=== PATIENT | male | born 1955 | race Caucasian/White ===

== ENCOUNTER → 2017-03-07 | Outpatient (REF) | payer OTHER ==
[2017-03-07 14:21] LABS: HEMATOCRIT 43.3 % (42.0-52.0); HEMOGLOBIN 14.7 g/dl (14.0-18.0); MEAN CORPUSCULAR HEMOGLOBIN 29.9 pg (27.0-33.0); MEAN CORPUSCULAR HGB CONC 33.9 g/dl (32.0-36.5); PLATELET COUNT, AUTOMATED 203 10^3/uL (150-450); RED BLOOD COUNT 4.92 10^6/uL (4.30-6.10); RED CELL DISTRIBUTION WIDTH 12.6 % (11.5-14.5); WHITE BLOOD COUNT 6.5 10^3/uL (4.0-10.0)
[2017-03-07 14:47] LABS: ALBUMIN 4.2 GM/DL (3.2-5.2); ALBUMIN/GLOBULIN RATIO 1.35 (1.00-1.93); ALKALINE PHOSPHATASE 58 U/L (45-117); ALT/SGPT 42 U/L (12-78); ANION GAP 5 MEQ/L (8-16); AST/SGOT 36 U/L (7-37); BILIRUBIN,TOTAL 0.4 MG/DL (0.2-1.0); BLOOD UREA NITROGEN 22 MG/DL (7-18); CALCIUM LEVEL 9.4 MG/DL (8.8-10.2); CARBON DIOXIDE LEVEL 31 MEQ/L (21-32); CHLORIDE LEVEL 105 MEQ/L (98-107); CHOLESTEROL LEVEL 243 MG/DL (<200); CREATININE FOR GFR 1.01 MG/DL (0.70-1.30); GLOMERULAR FILTRATION RATE > 60.0 (>49); GLUCOSE, FASTING 93 MG/DL (80-110); HDL CHOLESTEROL 91 MG/DL (>40); LDL CHOLESTEROL 137.6 MG/DL (<100); NON-HDL-C 152 MG/DL; POTASSIUM SERUM 4.7 MEQ/L (3.5-5.1); SODIUM LEVEL 141 MEQ/L (136-145); TOTAL PROTEIN 7.3 GM/DL (6.4-8.2); TRIGLYCERIDES LEVEL 72 MG/DL (<150)
== END ==
LOC: M LABDRAW1 11:10
DX: E03.9 Hypothyroidism, unspecified (principal); E78.00 Pure hypercholesterolemia, unspecified; Z86.718 Personal history of other venous thrombosis and embolism

== ENCOUNTER → 2018-08-25 | Outpatient (CLI) | payer OTHER ==
[~2018-08-25] MED LIST: CEFD300C41 FT; IBUP-1022 PO; SYNT150T PO; TYLE500T78 PO; XARE15TA PO
--- NOTE | 2018-08-25 19:16 | ECGEPIP ---
[facility] Test Date: 2018-08-25 Pat Name: ALEX MONTAGUE Department: Room: - Gender: Male Legal Internship: MONICA : 1955 Requested By: Deya Martell PA-C Order Number: [id number] Reading MD: Wyatt Hutchins Measurements Intervals [place] Rate: 38 P: 60 ND: 220 QRS: 42 QRSD: 129 T: 53 QT: 493 QTc: 395 Interpretive Statements SINUS BRADYCARDIA WITH FIRST DEGREE AV BLOCK MODERATE INTRAVENTRICULAR CONDUCTION DELAY/RIGHT BUNDLE-BRANCH BLOCK PATTERN No prior tracing in the system THIS WAS DISCUSSED EARLIER TODAY WITH THE STAFF. PATIENT IS ASYMPTOMATIC AND HE IS NOT ON ANY AV BLOCKING AGENTS. PATIENT WAS TOLD TO CONTACT HIS PRIMARY Electronically Signed on 08-25-2018 19:16:36 EDT by Wyatt Hutchins
== END ==
LOC: M EKG 09:23
PROVIDERS: ATTEND Physician Assistant Surgical
DX: Z01.810 Encounter for preprocedural cardiovascular examination (principal); M23.41 Loose body in knee, right knee

== ENCOUNTER → 2019-04-29 | Outpatient (REF) | payer MEDICARE, OTHER ==
[2019-04-29 12:10] LABS: HEMATOCRIT 44.2 % (42.0-52.0); HEMOGLOBIN 14.6 g/dl (13.5-17.5); MEAN CORPUSCULAR HEMOGLOBIN 29.3 pg (27.0-33.0); MEAN CORPUSCULAR VOLUME 88.6 fl (80.0-96.0); PLATELET COUNT, AUTOMATED 198 10^3/uL (150-450); RED BLOOD COUNT 4.99 10^6/uL (4.30-6.10); WHITE BLOOD COUNT 6.2 10^3/uL (4.0-10.0)
[2019-04-29 12:17] LABS: ALT/SGPT 18 U/L (12-78); BILIRUBIN,TOTAL 0.6 MG/DL (0.2-1.0); BLOOD UREA NITROGEN 25 MG/DL (7-18); CARBON DIOXIDE LEVEL 25 MEQ/L (21-32); CHLORIDE LEVEL 105 MEQ/L (98-107); CHOLESTEROL LEVEL 231 MG/DL (<200); CHOLESTEROL RISK RATIO 3.347 (<5); CREATININE FOR GFR 1.13 MG/DL (0.70-1.30); GLOMERULAR FILTRATION RATE > 60.0 (>49); GLUCOSE, FASTING 102 MG/DL (70-100); HDL CHOLESTEROL 69 MG/DL (>40); LDL CHOLESTEROL 150 MG/DL (<100); NON-HDL-C 162 MG/DL; POTASSIUM SERUM 4.6 MEQ/L (3.5-5.1); SODIUM LEVEL 138 MEQ/L (136-145); TOTAL PROTEIN 7.7 GM/DL (6.4-8.2); TRIGLYCERIDES LEVEL 62 MG/DL (<150)
[2019-04-29 12:35] LABS: HEMOGLOBIN A1c 5.8 %
== END ==
LOC: M SFHCPLAZ 09:00
PROVIDERS: ATTEND Internal Medicine
DX: Z00.00 Encounter for general adult medical examination without abnormal findings (principal); Z86.718 Personal history of other venous thrombosis and embolism; Z87.2 Personal history of diseases of the skin and subcutaneous tissue; E78.00 Pure hypercholesterolemia, unspecified; E03.9 Hypothyroidism, unspecified; Z79.899 Other long term (current) drug therapy
CPT/HCPCS: 36415; 80053; 80061; 83036; 84443; 85027; 90732; 93005; G0009; G0402; G0463

== ENCOUNTER → 2019-05-12 | Outpatient (CLI) | payer MEDICARE, OTHER | LOC: M SLEEP HO 05-11 13:29 | PROVIDERS: ATTEND Internal Medicine Cardiovascular Disease | DX: R06.83 Snoring (principal) ==

== ENCOUNTER → 2019-06-20 | Outpatient (CLI) | payer MEDICARE, OTHER ==
--- NOTE | 2019-06-22 20:36 | SLEEPCENT ---
DATE OF PROCEDURE: 06/20/2019 ORDERED BY: Dr. Wilder Taveras Nocturnal polysomnography was performed for evaluation of sleep physiology in this patient with a history of atrial arrhythmias. 7 hours and 46 minutes of data were reviewed. There were 305 minutes of sleep identified. Sleep latency was prolonged at 28.5 minutes. Rapid eye movement (REM) latency was prolonged at 183.5 minutes. Sleep architecture was fair with two REM cycles. There was a period of wake during sleep, resulting in reduced sleep efficiency of 66.5%. Electrocardiogram showed a sinus rhythm with some rate variability surrounding respiratory events. Average heart rate 44 beats per minute. Rate ranged 30-60. There was no occurrence of ectopy surrounding obstructive respiratory events. EEG showed normal waveforms for awake and sleep stages. There were no focal events identified. There were 29 respiratory events identified of 10 seconds in duration or greater for an apnea-hypopnea index of 5.7. The events were hypopneic primarily, not exclusive to sleep stage nor body posture, perhaps more significant in the supine position. Arousals from respiratory events occurred 6.5 times per hour and oxygen desaturations were seen into the upper 80s. There was minimal activity in the limb leads. Snoring was noted over the course of the study. IMPRESSION: Mild obstructive sleep apnea syndrome (G47.33). Apnea-hypopnea index 5.7. RECOMMENDATIONS: Sleep position retraining for avoidance of the supine posture may be sufficient. However, consideration for referral back to sleep disorder center for pressure therapy should also be considered.
== END ==
LOC: M SLEEP 20:00
PROVIDERS: ATTEND Internal Medicine Pulmonary Disease
DX: G47.33 Obstructive sleep apnea (adult) (pediatric) (principal)

== ENCOUNTER → 2019-07-28 | Outpatient (CLI) | payer MEDICARE, OTHER ==
--- NOTE | 2019-08-06 11:46 | SLEEPCENT ---
DATE OF PROCEDURE: 07/28/2019 INTERPRETATION: Nocturnal polysomnography was performed for the titration of pressure therapy in this patient with obstructive sleep apnea syndrome. Apnea-hypopnea index of 5.7. For testing a ResMed AirFit F30 medium-size mask was used, 4 cm of water pressure were applied to the circuit and the lights were extinguished. 7 hours and 25 minutes data were reviewed. There were 328 minutes of sleep identified. Sleep latency was mildly prolonged at 17.5 minutes. REM latency was normal at 80 minutes. Sleep architecture was good with three REM cycles noted. Overall sleep efficiency was 74.6%. The electrocardiogram showed sinus rhythm with an average heart rate of 42 beats per minute. Rate ranged 36-50. EEG showed fairly normal wave forms for awake and sleep. There were no focal event appreciated. Persistence of respiratory events prompted an increase in CPAP to an optimal pressure +9 with which the patient slept through REM without respiratory events or oxygen desaturation. There is no significant activity in the limb leads and remaining measures of sleep physiology was normal. IMPRESSION: Her obstructive sleep apnea syndrome (G47.33) RECOMMENDATIONS: Night use of pressure therapy at 9 cm of water.
== END ==
LOC: M SLEEP 20:00
PROVIDERS: ATTEND Internal Medicine Pulmonary Disease
DX: G47.33 Obstructive sleep apnea (adult) (pediatric) (principal)

== ENCOUNTER 2019-08-11 18:59 | Emergency (ER) | payer MEDICARE, OTHER ==
[~2019-08-11] VITALS: Ht 182.9 cm; Wt 104.2 kg
--- NOTE | 2019-08-11 19:27 | REPVR ---
PROCEDURE INFORMATION: Exam: CT Head Without Contrast Exam date and time: 08/11/2019 7:15 PM Age: 64 years old Clinical indication: Visual disturbance; Additional info: Neuro symptoms, visual changes TECHNIQUE: Imaging protocol: Computed tomography of the head without contrast. Radiation optimization: All CT scans at this facility use at least one of these dose optimization techniques: automated exposure control; mA and/or kV adjustment per patient size (includes targeted exams where dose is matched to clinical indication); or iterative reconstruction. COMPARISON: No relevant prior studies available. FINDINGS: Brain: Normal. No hemorrhage. Unremarkable white matter. No mass effect. Ventricles: Normal. No ventriculomegaly. Bones/joints: Unremarkable. No acute fracture. Sinuses: Visualized sinuses are unremarkable. No fluid levels. Mastoid air cells: Visualized mastoid air cells are well aerated. Vasculature: Atherosclerotic changes in the intracranial carotid arteries. Soft tissues: Unremarkable. IMPRESSION: No acute intracranial abnormalities. Electronically signed by: Rosalio Golden On 08/11/2019 19:27:34 PM
[2019-08-11 19:42] LABS: BASO # 0.1 10^3/uL (0.0-0.2); BASO % 0.8 % (0.0-1.0); EOS # 0.1 10^3/uL (0.0-0.5); EOS % 1.6 % (0.0-3.0); HEMATOCRIT 40.9 % (42.0-52.0); HEMOGLOBIN 13.7 g/dl (13.5-17.5); LYMPH % 31.8 % (24.0-44.0); MEAN CORPUSCULAR HEMOGLOBIN 29.2 pg (27.0-33.0); MEAN CORPUSCULAR HGB CONC 33.5 g/dl (32.0-36.5); MEAN CORPUSCULAR VOLUME 87.2 fl (80.0-96.0); MONO # 0.6 10^3/uL (0.0-0.8); MONO % 8.9 % (0.0-5.0); NEUTROPHILS # 3.5 10^3/uL (1.5-8.5); NEUTROPHILS % 56.7 % (36.0-66.0); PLATELET COUNT, AUTOMATED 167 10^3/uL (150-450); RED BLOOD COUNT 4.69 10^6/uL (4.30-6.10); WHITE BLOOD COUNT 6.2 10^3/uL (4.0-10.0)
--- NOTE | 2019-08-11 20:00 | REP ---
Single view chest: 08/11/2019. Indication: Stroke. Comparison: 05/07/2019. Findings: The lungs are clear. There is no pleural effusion or pneumothorax. Heart size is normal. Impression: No acute cardiopulmonary process. Electronically Signed by Kanu Whiteside DO 08/11/2019 07:51 P
[2019-08-11 20:11] LABS: BLOOD UREA NITROGEN 12 MG/DL (7-18); CALCIUM LEVEL 8.8 MG/DL (8.8-10.2); CARBON DIOXIDE LEVEL 27 MEQ/L (21-32); CHLORIDE LEVEL 106 MEQ/L (98-107); CK-MB VALUE MASS 4.9 NG/ML (<3.6); CPK CREATINE PHOSPHOKINASE 307 U/L (39-308); CREATININE FOR GFR 1.13 MG/DL (0.70-1.30); GLOMERULAR FILTRATION RATE > 60.0 (>49); GLUCOSE, FASTING 83 MG/DL (70-100); POTASSIUM SERUM 4.1 MEQ/L (3.5-5.1); SODIUM LEVEL 142 MEQ/L (136-145); TROPONIN I < 0.02 NG/ML (< 0.10)
--- NOTE | 2019-08-11 20:22 | ECGEPIP ---
[facility] - ED Test Date: 2019-08-11 Pat Name: ALEX MONTAGUE Department: Room: - Gender: Male [employer]ator: jaison : 1955 Requested By: NOELLE Morgan Order Number: [id number] Reading MD: Desirae Corbett Measurements Intervals [place] Rate: 44 P: 51 IA: 196 QRS: 40 QRSD: 130 T: 23 QT: 492 QTc: 425 Interpretive Statements SINUS BRADYCARDIA IVCD SIMILAR 08/25/18 Electronically Signed on 08-11-2019 20:21:59 EDT by Desirae Corbett
[2019-08-11 20:27] LABS: INR 1.2; PROTHROMBIN TIME 14.9 SECONDS (11.8-14.0)
[2019-08-11 20:28] LABS: PARTIAL THROMBOPLASTIN TIME 30.3 SECONDS (25.0-38.4)
[2019-08-11 21:15] VITALS: BP 131/76
== END 2019-08-11 21:46 | disposition home or self-care (01) ==
LOC: M ED 18:59
DX: H53.9 Unspecified visual disturbance (principal); E03.9 Hypothyroidism, unspecified; Z79.890 Hormone replacement therapy; Z79.01 Long term (current) use of anticoagulants

== ENCOUNTER → 2020-01-26 | Outpatient (CLI) | payer SELFPAY | LOC: M LABSMTC 11:51 | PROVIDERS: ATTEND Pediatrics | DX: Z11.59 Encounter for screening for other viral diseases (principal) ==

== ENCOUNTER → 2020-04-22 | Outpatient (CLI) | payer SELFPAY | LOC: M LABSMTC 10:58 | PROVIDERS: ATTEND Pediatrics | DX: Z20.822 Contact with and (suspected) exposure to COVID-19 (principal) ==

== ENCOUNTER 2020-11-26 13:39 | Emergency (ER) | payer MEDICARE, OTHER ==
[~2020-11-26] VITALS: Ht 182.9 cm; Wt 110.4 kg
--- NOTE | 2020-11-26 14:55 | REP ---
INDICATION: R/O DVT. COMPARISON: None. TECHNIQUE: 2D and pulse duplex Doppler ultrasound evaluation of the lower extremity deep venous system was performed. FINDINGS: Examination of the deep venous system of the left lower extremity reveals no evidence of deep venous thrombosis. 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 The calf veins were not well demonstrated. IMPRESSION: No evidence of deep venous thrombosis of the left lower extremity. <Electronically signed by Yordan Bryson > 11/26/20 [id number]
[2020-11-26 15:18] LABS: BASO # 0.1 10^3/uL (0.0-0.2); BASO % 0.3 % (0.0-1.0); EOS % 0.1 % (0.0-3.0); HEMATOCRIT 41.9 % (42.0-52.0); HEMOGLOBIN 14.4 g/dl (13.5-17.5); LYMPH # 0.6 10^3/uL (1.5-5.0); LYMPH % 3.9 % (24.0-44.0); MEAN CORPUSCULAR HEMOGLOBIN 29.8 pg (27.0-33.0); MEAN CORPUSCULAR HGB CONC 34.4 g/dl (32.0-36.5); MEAN CORPUSCULAR VOLUME 86.6 fl (80.0-96.0); MONO # 0.8 10^3/uL (0.0-0.8); MONO % 4.8 % (2.0-8.0); NEUTROPHILS # 14.9 10^3/uL (1.5-8.5); NEUTROPHILS % 89.8 % (36.0-66.0); PLATELET COUNT, AUTOMATED 179 10^3/uL (150-450); RED BLOOD COUNT 4.84 10^6/uL (4.30-6.10); WHITE BLOOD COUNT 16.6 10^3/uL (4.0-10.0)
[2020-11-26] MEDS ORDERED: ACETAMINOPHEN TAB 650MG DOSE (2X325MG) PO ONE (16:55)
[2020-11-26] MEDS ORDERED: cefTRIAXone SOD 1 GM in D5W MINI-BAG PLUS 50 ML IV ONE (17:10)
--- NOTE | 2020-11-26 17:25 | REP ---
INDICATION: fever. COMPARISON: Portable chest, 08/11/2019. TECHNIQUE: Upright AP portable chest image was obtained. FINDINGS: The lungs are clear. There is no lobar consolidation or pleural effusion. There is cardiomegaly without congestive heart failure. The upper abdominal bowel gas pattern is normal. There are no bony abnormalities of the chest. IMPRESSION: Cardiomegaly. No evidence of acute cardiopulmonary pathology. No significant change. <Electronically signed by Yordan Bryson > 11/26/20 [id number]
[2020-11-26] MEDS ORDERED: LIDOCAINE 1% SDV 5ML VIAL DILUENT ONE (18:00)
[2020-11-26] MEDS ORDERED: cefTRIAXone SOD 1GM VIAL (J0696 PER 250MG) IM ONE (18:00)
[2020-11-26 18:25] VITALS: BP 126/56
[2020-11-26 18:37] LABS: RSV AMPLIFICATION NEGATIVE (NEGATIVE)
[2020-11-26] MEDS ORDERED: CEPH500C PO (18:48)
== END 2020-11-26 19:05 | disposition home or self-care (01) ==
LOC: M ED 13:39
DX: R50.9 Fever, unspecified (principal); R42 Dizziness and giddiness; M79.652 Pain in left thigh; E07.9 Disorder of thyroid, unspecified; Z79.890 Hormone replacement therapy; Z79.899 Other long term (current) drug therapy; Z98.890 Other specified postprocedural states
CPT/HCPCS: 71045; 81001; 83605; 85025; 87040; 87631; 93971; 96372; 99283; J0696

== ENCOUNTER 2020-11-27 15:13 | Outpatient (CLI) | payer MEDICARE, OTHER ==
[~2020-11-27 15:13] MED LIST changes: +CEPH500C PO
[2020-11-27] MEDS ORDERED: cefTRIAXone SOD 2 GM in D5W MINI-BAG PLUS 50 ML IV ONE (16:00)
[2020-11-28] MEDS ORDERED: XARE10TA PO (18:38)
== END 2020-11-27 16:20 | disposition home or self-care (01) ==
LOC: M OPCLI5PR 15:13
PROVIDERS: ATTEND Family Medicine
DX: L03.116 Cellulitis of left lower limb (principal)
CPT/HCPCS: 96365; J0696

== ENCOUNTER 2020-11-28 15:04 | Emergency (ER) | payer MEDICARE, OTHER ==
[~2020-11-28] VITALS: Ht 182.9 cm; Wt 110.0 kg
[2020-11-28] MEDS ORDERED: XARE10TA PO (18:38)
[2020-11-28] MEDS ORDERED: cefTRIAXone SOD 2 GM in D5W MINI-BAG PLUS 50 ML IV ONE (18:45)
[2020-11-28 19:06] LABS: BASO % 0.7 % (0.0-1.0); EOS # 0.1 10^3/uL (0.0-0.5); EOS % 2.2 % (0.0-3.0); HEMATOCRIT 43.3 % (42.0-52.0); HEMOGLOBIN 14.4 g/dl (13.5-17.5); LYMPH # 1.6 10^3/uL (1.5-5.0); LYMPH % 28.3 % (24.0-44.0); MEAN CORPUSCULAR HEMOGLOBIN 29.8 pg (27.0-33.0); MEAN CORPUSCULAR HGB CONC 33.3 g/dl (32.0-36.5); MEAN CORPUSCULAR VOLUME 89.6 fl (80.0-96.0); MONO # 0.9 10^3/uL (0.0-0.8); MONO % 15.5 % (2.0-8.0); NEUTROPHILS # 3.1 10^3/uL (1.5-8.5); PLATELET COUNT, AUTOMATED 172 10^3/uL (150-450); RED BLOOD COUNT 4.83 10^6/uL (4.30-6.10); WHITE BLOOD COUNT 5.8 10^3/uL (4.0-10.0)
[2020-11-28 19:27] LABS: BLOOD UREA NITROGEN 14 MG/DL (7-18); CALCIUM LEVEL 8.9 MG/DL (8.8-10.2); CARBON DIOXIDE LEVEL 30 MEQ/L (21-32); CHLORIDE LEVEL 106 MEQ/L (98-107); CREATININE FOR GFR 1.09 MG/DL (0.70-1.30); GLOMERULAR FILTRATION RATE > 60.0 (>49); GLUCOSE, FASTING 106 MG/DL (70-100); POTASSIUM SERUM 4.4 MEQ/L (3.5-5.1); SODIUM LEVEL 138 MEQ/L (136-145)
[2020-11-28 19:52] LABS: ERYTHROCYTE SEDIMENTATION RATE 15 mm/hr (0-20)
--- NOTE | 2020-11-28 19:56 | REP ---
INDICATION: LLE swelling; worsening; hx of DVT. COMPARISON: Comparison study 26 November 2020. TECHNIQUE: Left {lower extremity duplex venous scanning is performed from the groin to the ankle level. FINDINGS: The deep veins are anechoic and fully compressible from the groin to the popliteal fossa in the left lower extremity. Color flow imaging is homogeneous. Spectral Doppler interrogation demonstrates intact respiratory variation in flow and normal manual augmentation of flow. There is no evidence of deep vein thrombosis above the knee. The calf veins could not be well visualized due to edema. No evidence of calf vein thrombosis seen. Doppler interrogation of the contralateral common femoral vein shows normal symmetric respiratory phasicity. IMPRESSION: No evidence of DVT in the left lower extremity femoropopliteal veins. No DVT in the visible portions of the calf veins. <Electronically signed by Chidi Mast > 11/28/201952
[2020-11-28 20:30] VITALS: BP 151/89
== END 2020-11-28 20:32 | disposition home or self-care (01) ==
LOC: M ED 15:04
DX: L03.116 Cellulitis of left lower limb (principal); E03.9 Hypothyroidism, unspecified; Z86.711 Personal history of pulmonary embolism; Z86.718 Personal history of other venous thrombosis and embolism; Z79.890 Hormone replacement therapy; Z79.01 Long term (current) use of anticoagulants
CPT/HCPCS: 80048; 85025; 85652; 86140; 93971; 96365; 99283; J0696

== ENCOUNTER → 2021-01-20 | Outpatient (CLI) | payer MEDICARE, OTHER ==
[~2021-01-20] MED LIST changes: +XARE10TA PO
== END ==
LOC: M LABSMTC 11:12
PROVIDERS: ATTEND Anesthesiology
DX: Z01.812 Encounter for preprocedural laboratory examination (principal); Z20.822 Contact with and (suspected) exposure to COVID-19

== ENCOUNTER 2021-01-25 10:38 | Day surgery (SDC) | payer MEDICARE, OTHER ==
[~2021-01-25] VITALS: Ht 182.9 cm; Wt 109.3 kg
--- OUTSIDE RECORDS SUMMARY | 2021-01-25 10:42 | CCD | Continuity of Care Document ---
Author Author Charlie SMITH DO Organization Unknown Address [address], [address] [place] [address] Phone [phone] Care Team Providers Care Aircraft Sales Representative Name Role Phone Wilder Pena M.D. [facility] [phone] Frank Maurice M.D. [facility] [phone] [facility] Unavailable Problems Description No Information Available Social History Type Date Description Comments Sex Unknown Tobacco Use Start: Unknown Never Smoked Cigarettes ETOH Use 3 A Month Tobacco Use Reviewed: 10/15/19 Patient has never smoked Recreational Drug Use Denies Drug Use Smoking Status Reviewed: 10/17/20 Patient has never smoked Allergies and adverse reactions Description No Known Drug Allergies Medications Active Medications SIG Qnty Indications Ordering Provide r Date CPAP Device 9cm lcw Wilder Taveras D.O 07/29/2019 Levothyroxine Sodium 125mcg Tablet s 1 tab by mouth every day Unknown Xarelto 10mg Tablets 1 tab by mouth every day at night--- Dr. Maurice- [place] Unknown Immunizations Description No Information Available Vital Signs Date Vital Result Comment 01/03/2021 3:31pm BP Systolic 136 mmHg BP Diastolic 72 mmHg Body Temperature 98.1 F Height 72 inches 6'0" Weight 250.50 lb BMI (Body Mass Index) 34.0 kg/m2 [place] Body Weight 178 lb Weight 113.627 kg BSA (Body Surface Area) 2.34 m2 10/17/2020 9:53am BP Systolic 132 mmHg BP Diastolic 80 mmHg Heart Rate 47 /min O2 % BldC Oximetry 98 % Height 72 inches 6'0" Weight 240.00 lb BMI (Body Mass Index) 32.5 kg/m2 [place] Body Weight 178 lb Weight 108.864 kg BSA (Body Surface Area) 2.30 m2 Results Description No Information Available Procedures Date Code Description Status 10/17/2020 68461 Office/Outpatient Established Lo w MDM 20-29 Min Completed Medical Devices Description No Information Available Encounters Type Date Location Provider Dx Diagnosis Office Visit 10/17/2020 9:30a [facility] papito Taveras D.O G47.33 Obstructive sleep apnea (jamal lt) (pediatric) Assessments Date Code Description Provider 10/17/2020 G47.33 Obstructive sleep apnea (adult) (pediatric) Wilder Taveras D.O Plan of Treatment 10/17/2020 - Wilder Taveras D.O* G47.33 Obstructive sleep apnea (adult) (pediatric) * * Follow up:* Follow in a year please. Functional Status Functional Condition Comment Date Status Independent with all ADL's Activ e Independent with all IADL's Acti ve Mental Status Mental Condition Comment Date Status None Active Referrals Refer to Reason for Referral Status Appt Date Abrahan Smith D.O. HEMORRHOIDS/RECTAL BLEEDING Scheduled 01/03/[address] [place] [id number] [phone]
--- OUTSIDE RECORDS SUMMARY | 2021-01-25 10:42 | CCD ---
Author Author [facility] Organization [facility] Address Unknown Phone Unavailable Care Team Providers Care Wool Sacker Name Role Phone Maring, Fareed PA Unavailable Unavailable Maring, Fareed PA Unavailable Unavailable Maring, Fareed PA Unavailable Unavailable Maring, Fareed PA Unavailable Unavailable Maring, Fareed PA Unavailable Unavailable Maring, Fareed PA Unavailable Unavailable Maring, Fareed PA Unavailable Unavailable Maring, Fareed PA Unavailable Unavailable Maring, Fareed PA Unavailable Unavailable Maring, Fareed PA Unavailable Unavailable Maring, Fareed PA Unavailable Unavailable Maring, Fareed PA Unavailable Unavailable Maring, Fareed PA Unavailable Unavailable Maring, Fareed PA Unavailable Unavailable Maring, Fareed PA Unavailable Unavailable Maring, Fareed PA Unavailable Unavailable BRYDEN, A LAST DO Unavailable Unavailable BRYDEN, A LAST DO Unavailable Unavailable BRYDEN, A LAST DO Unavailable Unavailable BRYDEN, A LAST DO Unavailable Unavailable BRYDEN, A LAST DO Unavailable Unavailable BRYDEN, A LAST DO Unavailable Unavailable BRYDEN, A LAST DO Unavailable Unavailable BRYDEN, A LAST DO Unavailable Unavailable BRYDEN, A LAST DO Unavailable Unavailable BRYDEN, A LAST DO Unavailable Unavailable BRYDEN, A LAST DO Unavailable Unavailable BRYDEN, A LAST DO Unavailable Unavailable BRYDEN, A LAST DO Unavailable Unavailable BRYDEN, A LAST DO Unavailable Unavailable BRYDEN, A LAST DO Unavailable Unavailable BRYDEN, A LAST DO Unavailable Unavailable BRYDEN, A LAST DO Unavailable Unavailable BRYDEN, A LAST DO Unavailable Unavailable BRYDEN, A LAST DO Unavailable Unavailable BRYDEN, A LAST DO Unavailable Unavailable BRYDEN, A LAST DO Unavailable Unavailable BRYDEN, A LAST DO Unavailable Unavailable BRYDEN, A LAST DO Unavailable Unavailable BRYDEN, A LAST DO Unavailable Unavailable BRYDEN, A LAST DO Unavailable Unavailable BRYDEN, A LAST DO Unavailable Unavailable BRYDEN, A LAST DO Unavailable Unavailable BRYDEN, A LAST DO Unavailable Unavailable BRYDEN, A LAST DO Unavailable Unavailable Rechlin, P Wilder DO Unavailable Unavailable Rechlin, P Wilder DO Unavailable Unavailable Rechlin, P Wilder DO Unavailable Unavailable Rechlin, P Wilder DO Unavailable Unavailable Rechlin, P Wilder DO Unavailable Unavailable Rechlin, P Wilder DO Unavailable Unavailable Rechlin, P Wilder DO Unavailable Unavailable Rechlin, P Wilder DO Unavailable Unavailable Rechlin, P Wilder DO Unavailable Unavailable Rechlin, P Wilder DO Unavailable Unavailable Rechlin, P Wilder DO Unavailable Unavailable Rechlin, P Wilder DO Unavailable Unavailable Rechlin, P Wilder DO Unavailable Unavailable Rechlin, P Wilder DO Unavailable Unavailable Rechlin, P Wilder DO Unavailable Unavailable Rechlin, P Wilder DO Unavailable Unavailable Rechlin, P Wilder DO Unavailable Unavailable Rechlin, P Wilder DO Unavailable Unavailable Rechlin, P Wilder DO Unavailable Unavailable Rechlin, P Wilder DO Unavailable Unavailable Rechlin, P Wilder DO Unavailable Unavailable Rechlin, P Wilder DO Unavailable Unavailable Rechlin, P Wilder DO Unavailable Unavailable Rechlin, P Wilder DO Unavailable Unavailable Rechlin, P Wilder DO Unavailable Unavailable Rechlin, P Wilder DO Unavailable Unavailable Rechlin, P Wilder DO Unavailable Unavailable Rechlin, P Wilder DO Unavailable Unavailable Rechlin, P Wilder DO Unavailable Unavailable Rechlin, P Wilder DO Unavailable Unavailable Rechlin, P Wilder DO Unavailable Unavailable Rechlin, P Wilder DO Unavailable Unavailable Rechlin, P Wilder DO Unavailable Unavailable Rechlin, P Wilder DO Unavailable Unavailable Rechlin, P Wilder DO Unavailable Unavailable Rechlin, P Wilder DO Unavailable Unavailable Rechlin, P Wilder DO Unavailable Unavailable Rechlin, P Wilder DO Unavailable Unavailable Rechlin, P Wilder DO Unavailable Unavailable Rechlin, P Wilder DO Unavailable Unavailable Rechlin, P Wilder DO Unavailable Unavailable Rechlin, P Wilder DO Unavailable Unavailable Rechlin, P Wilder DO Unavailable Unavailable Rechlin, P Wilder DO Unavailable Unavailable Rechlin, P Wilder DO Unavailable Unavailable Rechlin, P Wilder DO Unavailable Unavailable Rechlin, P Wilder DO Unavailable Unavailable Rechlin, P Wilder DO Unavailable Unavailable Rechlin, P Wilder DO Unavailable Unavailable Rechlin, P Wilder DO Unavailable Unavailable Rechlin, P Wilder DO Unavailable Unavailable Re-disclosure Warning The records that you are about to access may contain information from federally-assisted alcohol or drug abuse programs. If such information is present, then the following federally mandated warning applies: This information has been disclosed to you from records protected by federal confidentiality rules (42 CFR part 2). The federal rules prohibit you from making any further disclosure of this information unless further disclosure is expressly permitted by the written consent of the person to whom it pertains or as otherwise permitted by 42 CFR part 2. A general authorization for the release of medical or other information is NOT sufficient for this purpose. The Federal rules restrict any use of the information to criminally investigate or prosecute any alcohol or drug abuse patient.The records that you are about to access may contain highly sensitive health information, the redisclosure of which is protected by Article 27-F of the [facility] Public Health law. If you continue you may have access to information: Regarding HIV / AIDS; Provided by facilities licensed or operated by the [facility] Office of Mental Health; or Provided by the [facility] Office for People With Developmental Disabilities. If such information is present, then the following [facility] mandated warning applies: This information has been disclosed to you from confidential records which are protected by state law. State law prohibits you from making any further disclosure of this information without the specific written consent of the person to whom it pertains, or as otherwise permitted by law. Any unauthorized further disclosure in violation of state law may result in a fine or fdc sentence or both. A general authorization for the release of medical or other information is NOT sufficient authorization for further disc losure. Family History Family Member Name Family Member Gender Family Member Status Date o f Status Description Data Source(s) Unknown Male Problem MEDENT ([facility]) Encounters Encounter Providers Location Date Indications Data Source(s ) Outpatient Attender: LAST Lau/Carole/Marcel/David ndnusrat 01/03/2021 03:30:00 PM EDT MED[facility] ([facility]) [place] [address] [place] [address] 12/03/2020 12:00:00 AM EDT eCW1 ([facility]) Outpatient [address] [place] [place] [address] 11/29/2020 12:00:00 AM EDT eCW1 ([facility]) Unknown [address] [place] [address] 11/27/2020 12:00:00 AM EDT eCW1 ([facility]) Outpatient Attender: Wilder Lau/Carole/Marcel/David ndnusrat 10/17/2020 09:30:00 AM EDT MEDENT ([facility]) Outpatient Attender: Fareed NGUYEN 10/06/19 11:20:58 AM EDT - 10/05/2020 12:34:04 PM EDT [facility] ([facility] ) [place] [address] [place] [address] 05/09/2020 12:00:00 AM EST eCW1 ([facility]) Unknown [address] [place] [address] 05/09/2020 12:00:00 AM EST eCW1 ([facility]) Outpatient [address] [place] [address] 05/02/2020 12:00:00 AM EST eCW1 ([facility]) Unknown [address] [place] [address] 04/28/2020 12:00:00 AM EST eCW1 ([facility]) Immunizations Vaccine Date Status Description Data Source(s) Moderna #2 dose COVID-19 SARSCOV2 VAC 100MCG/0.5ML IM 06/06/2020 05:50:00 AM EDT completed eCW1 ([facility]) Moderna #2 dose COVID-19 SARSCOV2 VAC 100MCG/0.5ML IM 06/06/2020 05:50:00 AM EDT completed eCW1 ([facility]) COVID-19 VACCINE Moderna 06/06/2020 12:00:00 AM EDT completed [facility] Vaccine Series Complete: YESThis Data wa s Submitted to [facility] Via [facility]. COVID-19 VACCINE, MRNA-1273, LNP-S (MODERNA)/PF 06/06/2020 1 2:00:00 AM EDT completed [facility] Moderna #1 dose COVID-19 SARSCOV2 VAC 100MCG/0.5ML IM 05/06/2020 05:50:00 AM EST completed eCW1 ([facility]) Moderna #1 dose COVID-19 SARSCOV2 VAC 100MCG/0.5ML IM 05/06/2020 05:50:00 AM EST completed eCW1 ([facility]) COVID-19 VACCINE Moderna 05/06/2020 12:00:00 AM EST completed [facility] Vaccine Series Complete: NOThis Data was Submitted to [facility] Via [email or web address]. COVID-19 VACCINE, MRNA-1273, LNP-S (MODERNA)/PF 05/06/2020 1 2:00:00 AM EST completed [facility] Medications Medication Brand Name Start Date Product Form Dose Route Admi nistrative Instructions Pharmacy Instructions Status Indications Reaction Description Data Source(s) 125 mcg 01/16/2021 12:00:00 AM EST tablet 90 TAKE ONE TABLET BY MOUTH EVERY DAY TAKE ONE TABLET BY MOUTH EVERY DAY SOLD: 01/18/2021 [facility] SUPREP BOWEL PREP KIT 17.5-3.13-1.6 gram SODIUM, POTASSIUM,M AG SULFATES 01/11/2021 12:00:00 AM EST recon soln 354 TAKE PER DOCTOR'S BOWEL PREP INSTRUCTIONS TAKE PER DOCTOR'S BOWEL PREP INSTRUCTIONS SOLD: 01/18/2021 [facility] Clindamycin 300 MG Oral Capsule CLINDAMYCIN HCL 12/03/2020 12:00 :00 AM EDT capsule 40 TAKE ONE CAPSULE BY MOUTH FOUR T IMES A DAY TAKE ONE CAPSULE BY MOUTH FOUR TIMES A DAY SOLD: 12/03/2020 [facility] Cephalexin 500 MG Oral Capsule CEPHALEXIN 11/27/2020 12:00:00 AM EDT capsule 40 TAKE ONE CAPSULE BY MOUTH FOUR TIMES A DAY TAKE ONE CA PSULE BY MOUTH FOUR TIMES A DAY SOLD: 11/27/2020 [facility] Cephalexin 500 MG Oral Capsule Cephalexin 500 MG 11/26/2020 12:00:0 0 AM EDT 1.0 {capsule} active Cephalexin 500 MG eCW1 ([facility]) Cephalexin 500 MG Oral Capsule Cephalexin 500 MG 11/26/2020 12:00:0 0 AM EDT 1.0 {capsule} active Cephalexin 500 MG eCW1 ([facility]) 10 mg 10/24/2020 12:00:00 AM EDT tablet 90 TAKE ONE TABLET BY MOUTH EVERY DAY TAKE ONE TABLET BY MOUTH EVERY DAY SOLD: 10/29/2020 [facility] 20 mg 05/02/2020 12:00:00 AM EST tablet 90 TAKE ONE TABLET BY MOUTH EVERY DAY TAKE ONE TABLET BY MOUTH EVERY DAY SOLD: 05/05/2020 [facility] Acyclovir 400 MG Oral Tablet ACYCLOVIR 02/11/2020 12:00:00 AM EST tabl et 100 TAKE THREE TABLETS BY MOUTH EVERY DAY NEEDED TAKE THREE TABLETS BY MOUTH EVERY DAY NEEDED SOLD: 02/23/2020 [facility] 125 mcg 01/08/2020 12:00:00 AM EST tablet 90 TAKE ONE TABLET BY MOUTH EVERY DAY TAKE ONE TABLET BY MOUTH EVERY DAY SOLD: 10/19/2020 [facility] 125 mcg 01/08/2020 12:00:00 AM EST tablet 90 TAKE ONE TABLET BY MOUTH EVERY DAY TAKE ONE TABLET BY MOUTH EVERY DAY SOLD: 07/22/2020 [facility] 125 mcg 01/08/2020 12:00:00 AM EST tablet 90 TAKE ONE TABLET BY MOUTH EVERY DAY TAKE ONE TABLET BY MOUTH EVERY DAY SOLD: 04/03/2020 [facility] 125 mcg 01/08/2020 12:00:00 AM EST tablet 90 TAKE ONE TABLET BY MOUTH EVERY DAY TAKE ONE TABLET BY MOUTH EVERY DAY SOLD: 01/09/2020 [facility] 20 mg 06/04/2019 12:00:00 AM EDT tablet 30 TAKE 1 TABLET BY MOUTH ONCE DAILY WITH FOOD TAKE 1 TABLET BY MOUTH ONCE DAILY WITH FOOD SOLD: 04/03/2020 [facility] 20 mg 06/04/2019 12:00:00 AM EDT tablet 30 TAKE 1 TABLET BY MOUTH ONCE DAILY WITH FOOD TAKE 1 TABLET BY MOUTH ONCE DAILY WITH FOOD SOLD: 03/05/2020 [facility] 20 mg 06/04/2019 12:00:00 AM EDT tablet 30 TAKE 1 TABLET BY MOUTH ONCE DAILY WITH FOOD TAKE 1 TABLET BY MOUTH ONCE DAILY WITH FOOD SOLD: 12/01/2019 [facility] 20 mg 06/04/2019 12:00:00 AM EDT tablet 30 TAKE 1 TABLET BY MOUTH ONCE DAILY WITH FOOD TAKE 1 TABLET BY MOUTH ONCE DAILY WITH FOOD SOLD: 01/27/2020 [facility] 20 mg 06/04/2019 12:00:00 AM EDT tablet 30 TAKE 1 TABLET BY MOUTH ONCE DAILY WITH FOOD TAKE 1 TABLET BY MOUTH ONCE DAILY WITH FOOD SOLD: 12/30/2019 [facility] Insurance Providers Payer name Policy type / Coverage type Policy ID Covered green party ID Covered green party's relationship to viramontes Policy [place]es Plan Information Medi-Share Processing (pr) Commercial [id number] Self [id number] [facility] Medicare Medicare Part B [id number] Self [id number] [facility] Medicare Medicare Part B [id number] Self [id number] medishare [id number] SP [id number] SELF PAY ONLY [id number] SP [id number] MEDISHARE O [id number] S [id number] MEDICARE C [id number] S [id number] [facility] O [id number] S [id number] [place]ARE O [id number] S [id number] ANSI-Commercial [id number] ANSI-Commercial [id number] MEDI-SHARE [id number] 18 [id number] MEDI-SHARE [id number] SP [id number] [employer] MINISTRY O [id number] S [id number] [employer] MINISTRY [id number] SP [id number] [facility] [id number] [place] [id number] [facility] [id number] SP [id number] MEDICARE [id number] SP [id number] SP [id number] Problems, Conditions, and Diagnoses Code Display Name Description Problem Type Effective Dates Data Source(s) Z87.2 [id number] History of cellulitis Problem 11/30/2020 12: 00:00 AM EDT eCW1 ([facility]) G47.33 Obstructive sleep apnea syndrome Obstructive sle ep apnea syndrome Problem 05/02/2020 12:00:00 AM EST eCW1 ([facility]) Surgeries/Procedures Procedure Description Date Indications Data Source(s) OFFICE OUTPATIENT NEW 45 MINUTES 01/03/2021 12:00:00 A M EDT [facility] ([facility] ) OFFICE OUTPATIENT VISIT 15 MINUTES 10/17/2020 12:00:00 AM EDT MED[facility] ([facility], ) Results ID Date Data Source [id number] 11/26/2020 04:53:00 PM EDT [facility] Name Value Range Interpretation Code Description Data Susana rce(s) Supporting Document(s) SARS coronavirus 2 RNA [Presence] in Res piratory specimen by AMY with probe detection NEGATIVE [facility] This lab was ordered by [facility] a nd reported by [facility]. ID Date Data Source [id number] 10/05/2020 12:15:00 PM EDT [facility] Name Value Range Interpretation Code Description Data Susana rce(s) Supporting Document(s) SARS-CoV-2 RNA Resp Ql AMY+probe NOT DETECTED [facility] This lab was ordered by [facility] and reported by [facility]. ID Date Data Source CBC - Complete Blood Count 04/28/2020 12:00:00 AM EST eCW1 ( [facility]) Name Value Range Interpretation Code Description Data Susana rce(s) Supporting Document(s) 6.2 4.0-10.0 WHITE BLOOD COUNT eCW1 ([facility]) 88.6 80.0-96.0 MEAN CORPUSCULAR VOLUME e CW1 ([facility]) 4.99 4.30-6.10 RED BLOOD COUNT eCW1 ([facility]) 12.4 11.5-14.5 RED CELL DISTRIBUTION WID TH eCW1 ([facility]) 198 150-450 PLATELET COUNT, AUTOMATED eCW1 ([facility]) 33.0 32.0-36.5 MEAN CORPUSCULAR HGB CONC eCW1 ([facility]) 29.3 27.0-33.0 MEAN CORPUSCULAR HEMOGLOB IN eCW1 ([facility]) RBC eCW1 ([facility]) WBC eCW1 ([facility]) Complete Blood Count (CBC) eCW 1 ([facility]) HEMOGLOBIN eCW1 ([facility]) MCHC eCW1 ([facility]) MCH eCW1 ([facility]) MCV eCW1 ([facility]) HEMATOCRIT eCW1 ([facility]) PLATELET COUNT eCW1 ([facility]) RDW eCW1 ([facility]) ID Date Data Source [id number] 04/22/2020 11:00:00 AM EST [facility] Name Value Range Interpretation Code Description Data Susana rce(s) Supporting Document(s) SARS-CoV-2 (COVID-19) RNA [Presence] in Respiratory specimen by AMY with probe detection Not Detected [facility] This lab was ordered by [facility] and reported by [employer] ID Date Data Source [id number] 02/12/2020 12:00:00 AM EST [facility] Name Value Range Interpretation Code Description Data Susana rce(s) Supporting Document(s) SARS-CoV2 Rapid Antigen [facility] This lab was ordered by [facility] and reported by [facility]. ID Date Data Source [id number] 01/26/2020 12:00:00 AM EST [facility] Name Value Range Interpretation Code Description Data Susana rce(s) Supporting Document(s) 2019-nCoV RNA XXX AMY+probe-Imp [facility] This lab was ordered by [facility] and reported by [facility] [employer] [facility] [employer] Procedure Social History Code Duration Value Status Description Data Source(s ) Smoking 11/29/2020 12:00:00 AM EDT Never Smoker completed Never S moker eCW1 ([facility]) Smoking 11/29/2020 12:00:00 AM EDT Never Smoker completed Never S moker eCW1 ([facility]) Smoking 10/17/2020 12:00:00 AM EDT Patient has never smoked co mpleted Patient has never smoked MEDENT ([facility]) Smoking 05/02/2020 12:00:00 AM EST Never Smoker completed Never S moker eCW1 ([facility]) Smoking 05/02/2020 12:00:00 AM EST Never Smoker completed Never S moker eCW1 ([facility]) Smoking 05/02/2020 12:00:00 AM EST Never Smoker completed Never S moker eCW1 ([facility]) Smoking 05/02/2020 12:00:00 AM EST Never Smoker completed Never S moker eCW1 ([facility]) Vital Signs ID Date Data Source UNK Name Value Range Interpretation Code Description Data Source(s) Body mass index (BMI) [Ratio] 34.0 kg/m2 34.0 k g/m2 [facility] Systolic blood pressure 136 mm[Hg] 136 mm[Hg] M EDENT ([facility]) Diastolic blood pressure 72 mm[Hg] 72 mm[Hg] MEDENT ([facility]) Body temperature 98.1 [degF] 98.1 [degF] [facility] ([facility]) Body height 72 [in_i] 72 [in_i] [facility] ([facility]) 6'0" Body weight 250.50 [lb_av] 250.50 [lb_av] MEDEN T ([facility]) [place] body weight 178 [lb_av] 178 [lb_av] MEDEN T ([facility]) Body weight 113.627 kg 113.627 kg [facility] ([facility]) Body surface area Derived from formula 2.34 m2 2.34 m2 [facility] ([facility]) Body weight 242.6 [lb_av] 242.6 [lb_av] eCW1 ([facility]) Body height 72.0 [in_i] 72.0 [in_i] eCW1 ([facility]) Body mass index (BMI) [Ratio] 32.90 kg/m2 32.90 kg/m2 eCW1 ([facility]) Heart rate 61 /min 61 /min eCW1 ([facility]) Respiratory rate 20 /min 20 /min eCW1 ([facility]) Body temperature 97.8 [degF] 97.8 [degF] eCW1 ( [facility]) Systolic blood pressure 118 mm[Hg] 118 mm[Hg] e CW1 ([facility]) Diastolic blood pressure 76 mm[Hg] 76 mm[Hg] eCW1 ([facility]) Heart rate 47 /min 47 /min MEDENT ([facility]) [place] body weight 178 [lb_av] 178 [lb_av] MEDEN T ([facility]) Systolic blood pressure 132 mm[Hg] 132 mm[Hg] M EDENT ([facility]) Diastolic blood pressure 80 mm[Hg] [facility] Oxygen saturation in Arterial blood by Pulse oximetry 98 % 98 % [facility] ([facility]) Body height 72 [in_i] 72 [in_i] [facility] ([facility]) 6'0" Body weight 240.00 [lb_av] 240.00 [lb_av] MEDEN T ([facility]) Body mass index (BMI) [Ratio] 32.5 kg/m2 32.5 k g/m2 [facility] ([facility]) Body weight 108.864 kg 108.864 kg [facility] ([facility]) Body surface area Derived from formula 2.30 m2 2.30 m2 [facility] ([facility]) Body weight 220.6 [lb_av] 220.6 [lb_av] eCW1 ([facility]) Body height 72.0 [in_i] 72.0 [in_i] eCW1 ([facility]) Body mass index (BMI) [Ratio] 29.92 kg/m2 29.92 kg/m2 eCW1 ([facility]) Heart rate 67 /min 67 /min eCW1 ([facility]) Respiratory rate 18 /min 18 /min eCW1 ([facility]) Body temperature 97.6 [degF] 97.6 [degF] eCW1 ( [facility]) Systolic blood pressure 126 mm[Hg] 126 mm[Hg] e CW1 ([facility]) Diastolic blood pressure 82 mm[Hg] 82 mm[Hg] eCW1 ([facility]) Patient Treatment Plan of Care Planned Activity Planned Date Details Description Data Source (s) Cephalexin 500 MG Oral Capsule 11/26/2020 12:00:00 AM EDT eCW1 ([facility]) Cephalexin 500 MG Oral Capsule 11/26/2020 12:00:00 AM EDT eCW1 ([facility])
--- OUTSIDE RECORDS SUMMARY | 2021-01-25 10:42 | CCD | Continuity of Care Document ---
Author Author Charlie SMITH DO Organization Unknown Address [address] [facility], [address] [place] [address] Phone [phone] Care Team Providers Care Telephone Technician Name Role Phone Wilder Pena M.D. AUTM [phone] Frank Maurice M.D. AUTM [phone] AUTM Unavailable Problems Description No Information Available [...] lb BMI (Body Mass Index) 34.0 kg/m2 [place] Body Weight 178 lb Weight 113.627 kg BSA (Body Surface Area) 2.34 m2 10/17/2020 9:53am BP Systolic 132 mmHg BP Diastolic 80 mmHg Heart Rate 47 /min O2 % BldC Oximetry 98 % Height 72 inches 6'0" Weight 240.00 lb BMI (Body Mass Index) 32.5 kg/m2 [place] Body Weight 178 lb Weight 108.864 kg BSA (Body Surface Area) 2.30 m2 Results Description No Information Available Procedures Date Code Description Status 01/03/2021 40773 Office/Outpatient New Moderate M DM 45-59 Minutes Completed 10/17/2020 77455 Office/Outpatient Established Lo w MDM 20-29 Min Completed Medical Devices Description No Information Available Encounters Type Date Location Provider Dx Diagnosis Office Visit 01/03/2021 3:30p [facility] Abrahan Smith DO K62.5 Hemorrhage of anus and rectum Office Visit 10/17/2020 9:30a [facility] Pulmonary/Thoracic D papito Taveras D.O G47.33 Obstructive sleep apnea (jamal lt) (pediatric) Assessments Date Code Description Provider 01/03/2021 K62.5 Hemorrhage of anus and rectum Da dallas Smith DO 10/17/2020 G47.33 Obstructive sleep apnea (adult) (pediatric) Wilder Taveras D.O Plan of Treatment Future Appointment(s):* 02/08/2021 11:15 am - WENDY Bee at [facility] * 01/25/2021 1:00 pm - Abrahan Smith DO at [facility] 01/03/2021 - Abrahan Smith DO* K62.5 Hemorrhage of anus and rectum* Comments:* 65 y/o male w/ history of hemorrhoids, and rectal bleeding. Last colonoscopy was 20 years ago. Recommendation at this time is to proceed with colonoscopy. Risk and benefits are not limited to, but include, bleeding, infection, perforation, and need for further surgery. He understands the risks and elects to proceed with the procedure. Functional Status Functional Condition Comment Date Status Independent with all ADL's Activ e Independent with all IADL's Acti ve Mental Status Mental Condition Comment Date Status None Active Referrals Refer to Reason for Referral Status Appt Date Abrahan Smith D.O. HEMORRHOIDS/RECTAL BLEEDING Scheduled 01/03/[address] [place], [place] [id number] [phone]
--- OUTSIDE RECORDS SUMMARY | 2021-01-25 10:42 | CCD ---
Author Author [facility] Organization [facility] Address Unknown Phone Unavailable Care Team Providers Care Vacuum Extractor Operator Name Role Phone Junior Edwards Unavailable PROBLEMS Type Condition ICD9-CM Code OUR10-FN Code Onset Dates Condition S tatus W/U Status Risk SNOMED Code Notes Problem Hypothyroidism E03.9 Active confirmed 98252 008 He is on replacement therapy with levothyroxine 125 mcg daily as of November 2015; TSH is optimal at 1.90 in April 2020. Problem History of DVT (deep vein thrombosis) Z86.718 Ac tive confirmed [id number] He had a DVT of his left leg in spring. He took Xarelto for 3 months and had now been off that therapy since October 2015, with a negative hypercoagulability workup subsequently via a clinical lab technologist. He had multiple pulmonary emboli on CT scan in May 2019 and is now on Xarelto for life. Problem Multiple subsegmental pulmonary emboli without a cute cor pulmonale I26.94 Active confirmed 34414030 A CT scan in 2019 demonstrated subsegmental pulmonary emboli. Patient has no leg symptoms. He needs to be on anticoagulation for life. I reduced his Xarelto therapy to maintenance dosing, 10 mg daily, as of May 2020. Problem History of cellulitis Z87.2 Active confirmed [id number] He has cellulitis with his DVT in July 2015, with recurrence as of late November 2020. He has had 3 doses of intravenous Rocephin and is currently on Keflex therapy. He seems to be improving. He may need a switch to clindamycin therapy if he does not improve further. 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 He will contact us if there is no improvement. Will complete a 10-day course of Keflex. Because he has a prior history of similar infections, it would be prudent for him to have Keflex available to take immediately should he develop any signs of recurrence. This is prescribed. Problem Hypercholesterolemia E78.00 Active confirmed [id number] He has a chronically elevated cholesterol with a very high HDL; his lipids are improved as of April 2020. He continues to utilize diet and exercise to control his lipids, rather than start a statin. Problem Immunization due Z23 Active confirmed 171 448082 Pneumovax given today. We discussed Prevnar in May 2020 and he deferred. He should have a shingles vaccination. He has steadfastly refused flu shots. Problem Bradycardia R00.1 Active confirmed 77765811 He has chronic bradycardia and is not symptomatic in that regard. He has had a cardiology workup. Problem Obstructive sleep apnea syndrome G47.33 Active conf irmed [id number] He is on CPAP + centimeters of water since 2019. ALLERGIES Allergen (clinical drug ingredient) Drug/Non Drug Allergy do cumented on EMR Reaction Allergy Type Onset Date Status atorvastatin Lipitor([facility] Code:[address]-37) Unknown Drug Allergy Active ENCOUNTERS from 1955 to 2020-12-20 Encounter Location Date Provider Diagnosis [place] [address] [facility] [phone] [place] [address] Dec, Junior Edwards IMMUNIZATIONS Vaccine Route Administration Date Status Moderna #1 dose COVID-19 SARSCOV2 VAC 100MCG/0.5ML IM Unknown May 06, 2020 Administered Moderna #2 dose COVID-19 SARSCOV2 VAC 100MCG/0.5ML IM Unknown June 06, 2020 Administered TDAP Pharmacy Given Unknown July 21, 2014 Administered Pneumococcal Adult 0.5mL Pneumovax 23 IM Intramuscular Apr 29 020 Administered SOCIAL HISTORY Tobacco Use: Social History Observation Description Date Details (start date - stop date) Never Smoker Sex Assigned At : Social History Observation Description Sex Assigned At Unknown Education: Question Answer Notes Level of Education: Professional Schools/Masters/PhD Audit Question Answer Notes Total Score: 1 Interpretation: Alcohol Education Domestic Violence: Question Answer Notes Status: Sexual Hx: Question Answer Notes Had sex in the last 12 months (vaginal, oral, or anal)? Yes Have you ever had an STD? No with Women only Drug and Alcohol Question Answer Notes Total Score: 0 Interpretation: No problems reported Alcohol Screening: Question Answer Notes Did you have a drink containing alcohol in the past year? Ye s Points 1 Interpretation Negative How often did you have six or more drinks on one occas ion in the past year? Never (0 points) How many drinks did you have on a typica l day when you were drinking in the past year? 1 or 2 (0 points) How often did you have a drink containing alcohol in t he past year? Monthly or less (1 point) Tobacco Use: Question Answer Notes Are you a: never smoker REASON FOR REFERRAL No Information VITAL SIGNS No information MEDICATIONS Medication SIG (Take, Route, Frequency, Duration) Notes Start Da te End Date Status Levothyroxine Sodium 125 MCG 1 tablet Orally Once a day for 90 day(s) Active Xarelto 10 MG 1 tablet Orally Once a day for 90 days 2019 Active Tylenol Extra Strength 500 MG 1 tablet as needed Orally every 4 hrs Active Cephalexin 500 MG 1 capsule Orally Four times a day for 10 days Nov, Active PROCEDURES No Information RESULTS No Results REASON FOR VISIT cellulitis maybe coming back MEDICAL (GENERAL) HISTORY Type Description Date Medical History Hypothyroidism Medical History History of DVT (deep vein thrombosis) Medical History Hypercholesterolemia Surgical History Tonsillectomy and appendectomy childhood Surgical History Myringotomies Surgical History Right knee arthroscopy-Dr. Bridges 08/21 18 Hospitalization History [facility]-fever, chills, left leg cellu litis 11/26/2020 Hospitalization History [facility]-left leg cellulitis Goals Section No Information Health Concerns No Information MEDICAL EQUIPMENT No Information MENTAL STATUS No Information FUNCTIONAL STATUS No Information ASSESSMENTS No Information PLAN OF TREATMENT Medication Medication Name Sig Start Date Stop Date Cephalexin 500 MG 1 capsule Orally Four times a day for 10 days Nov, Next Appt Details Provider Name:Frank Maurice, 2021-05-03 07 :30:00 AM, [address] [facility], , [place], [address], Insurance Providers Payer Name Payer Address Payer Phone Insured Name Patient Relati onship to Insured Coverage Start Date Coverage End Date OTHER1 ALEX [place] self MEDICARE Part A and B [address] [facility] [address] [phone] ALEX [place]ONT[place]UE self
--- OUTSIDE RECORDS SUMMARY | 2021-01-25 10:42 | CCD ---
Author Author [facility] Organization [facility] Address Unknown Phone Unavailable Care Team Providers Care Stone Mason Name Role Phone Frank Maurice Unavailable PROBLEMS Type Condition ICD9-CM Code KED40-SU Code Onset Dates Condition S tatus W/U Status Risk SNOMED Code Notes Problem Hypothyroidism E03.9 Active confirmed 40928 008 He is on replacement therapy with levothyroxine 125 mcg daily as of November 2015; TSH is optimal at 1.90 in April 2020. Problem History of DVT (deep vein thrombosis) Z86.718 Ac tive confirmed [id number] He had a DVT of his left leg in spring. He took Xarelto for 3 months and had now been off that therapy since October 2015, with a negative hypercoagulability workup subsequently via a hyperbaric technologist. He had multiple pulmonary emboli on CT scan in May 2019 and is now on Xarelto for life. Problem Multiple subsegmental pulmonary emboli without a cute cor pulmonale I26.94 Active confirmed 31554368 A CT scan in 2019 demonstrated subsegmental pulmonary emboli. Patient has no leg symptoms. He needs to be on anticoagulation for life. I reduced his Xarelto therapy to maintenance dosing, 10 mg daily, as of May 2020. Problem History of cellulitis Z87.2 Active confirmed [id number] He has cellulitis with his DVT in [...] is prescribed. Problem Hypercholesterolemia E78.00 Active confirmed 33698117 He has a chronically elevated cholesterol with a very high HDL; his lipids are improved as of April 2020. He continues to utilize diet and exercise to control his lipids, rather than start a statin. Problem Immunization due Z23 Active confirmed 171 095605 Pneumovax given today. We discussed Prevnar in May 2020 and he deferred. He should have a shingles vaccination. He has steadfastly refused flu shots. Problem Bradycardia R00.1 Active confirmed 00729540 He has chronic bradycardia and is not symptomatic in that regard. He has had a cardiology workup. Problem Obstructive sleep apnea syndrome G47.33 Active conf irmed [id number] He is on CPAP + centimeters of water since 2019. ALLERGIES Allergen (clinical drug ingredient) Drug/Non Drug Allergy do cumented on EMR Reaction Allergy Type Onset Date Status atorvastatin Lipitor([facility] Code:[address]-56) Unknown Drug Allergy Active ENCOUNTERS from 1955 to 2020-12-05 Encounter Location Date Provider Diagnosis [place] [address] [facility] [phone] [place] [address] Nov, Josafat Cellulitis of left leg L03.1 16 IMMUNIZATIONS Vaccine Route Administration Date Status Moderna #1 dose COVID-19 SARSCOV2 VAC 100MCG/0.5ML IM Unknown May 06, 2020 Administered Moderna #2 dose COVID-19 SARSCOV2 VAC 100MCG/0.5ML IM Unknown June 06, 2020 Administered TDAP Pharmacy Given Unknown July 21, 2014 Administered Pneumococcal Adult 0.5mL Pneumovax 23 IM Intramuscular Apr 29, 2 020 Administered SOCIAL HISTORY Tobacco Use: Social [...] REASON FOR REFERRAL No Information VITAL SIGNS Weight 242.6 lbs Nov, Height 72.0 in Nov, BMI 32.90 kg/m2 Nov, Heart Rate 61 /min Nov, Respiratory Rate 20 /min Nov, Temperature 97.8 degrees Fahrenheit Nov, Oximetry 98% Nov, Blood pressure systolic 118 mm Hg Nov, Blood pressure diastolic 76 mm Hg Nov, MEDICATIONS Medication SIG (Take, Route, Frequency, Duration) [...] Information RESULTS No Results REASON FOR VISIT [facility] follow up-Visits 11/26/2020 and 11/28/2020; Cellulitis left leg, fever MEDICAL (GENERAL) HISTORY Type Description Date Medical History Hypothyroidism Medical History History of DVT (deep vein thrombosis) Medical History Hypercholesterolemia Surgical History Tonsillectomy and appendectomy childhood Surgical History Myringotomies Surgical History Right knee arthroscopy-Dr. Bridges 08/21 18 Hospitalization History [facility]-fever, chills, left leg cellu litis 11/26/2020 Hospitalization History [facility]-left leg cellulitis Goals Section No Information Health Concerns No Information MEDICAL EQUIPMENT No Information MENTAL STATUS No Information FUNCTIONAL STATUS No Information ASSESSMENTS Encounter Date Diagnosis Assessment Notes Treatment Notes Treatm ent Clinical Notes Nov, Cellulitis of left leg (ICD-10 - L03.116 ) He has a prior history, with recurrence as of late November 2020. [...] any signs of recurrence. This is prescribed. PLAN OF TREATMENT Medication Medication Name Sig Start Date Stop Date Cephalexin 500 MG 1 capsule Orally Four times a day for 10 days Nov, Next Appt Details 05/2021 Reason: Provider Name:Frank Maurice, 2021-05-03 07 :30:00 AM, [address] [facility], , [place], [address], Insurance Providers Payer Name Payer Address Payer Phone Insured Name Patient Relati onship to Insured Coverage Start Date Coverage End Date MEDICARE Part A and B [facility] [address] [facility] [phone] ALEX MONTAGUE OTHER1 ALEX MONTAGUE
--- OUTSIDE RECORDS SUMMARY | 2021-01-25 10:42 | CCD ---
Author Author [facility] Organization [facility] Address Unknown Phone Unavailable Care Team Providers Care Communications Station Manager Name Role Phone Huy Bolton Unavailable PROBLEMS Type Condition ICD9-CM Code POS37-IV Code Onset Dates Condition S tatus W/U Status Risk SNOMED Code Notes Problem Hypothyroidism E03.9 Active confirmed 71244 548 He is on replacement therapy with levothyroxine 125 mcg daily as of November 2015; TSH is optimal at 1.90 in April 2020. Problem Obstructive sleep apnea syndrome G47.33 Active conf irmed [id number] He is on CPAP + centimeters of water since 2019. Problem Multiple subsegmental pulmonary emboli without a cute cor pulmonale I26.94 Active confirmed 05817218 A CT scan in 2019 demonstrated subsegmental pulmonary emboli. Patient has no leg symptoms. He needs to be on anticoagulation for life. I reduced his Xarelto therapy to maintenance dosing, 10 mg daily, as of May 2020. Problem History of DVT (deep vein thrombosis) Z86.718 Ac tive confirmed [id number] He had a DVT of his left leg in spring. He took Xarelto for 3 months and had now been off that therapy since October 2015, with a negative hypercoagulability workup subsequently via a commercial kitchen service technician. He had multiple pulmonary emboli on CT scan in May 2019 and is now on Xarelto for life. Problem Hypercholesterolemia E78.00 Active confirmed 06891120 He has a chronically elevated cholesterol with a very high HDL; his lipids are improved as of April 2020. He continues to utilize diet and exercise to control his lipids, rather than start a statin. Problem Immunization due Z23 Active confirmed 171 034441 Pneumovax given today. We discussed Prevnar in May 2020 and he deferred. He should have a shingles vaccination. He has steadfastly refused flu shots. Problem Bradycardia R00.1 Active confirmed 84496196 He has chronic bradycardia and is not symptomatic in that regard. He has had a cardiology workup. ALLERGIES Allergen (clinical drug ingredient) Drug/Non Drug Allergy do cumented on EMR Reaction Allergy Type Onset Date Status atorvastatin Lipitor([facility] Code:[address]-90) Unknown Drug Allergy Active ENCOUNTERS from 1955 to 2020-11-28 Encounter Location Date Provider Diagnosis [place] [id number] [facility] [phone] [place] [address] Nov, Huy Bolton IMMUNIZATIONS Vaccine Route Administration Date Status Pneumococcal Adult 0.5mL Pneumovax 23 IM Intramuscular [...] Once a day for 90 day(s) Active Tylenol Extra Strength 500 MG 1 tablet as needed Orally every 4 hrs Active Xarelto 10 MG 1 tablet Orally Once a day for 90 days r2019 Active PROCEDURES No Information RESULTS No Results REASON FOR VISIT No Information MEDICAL (GENERAL) HISTORY Type Description Date Medical History Hypothyroidism Medical History History of DVT (deep vein thrombosis) Medical History Hypercholesterolemia Surgical History Tonsillectomy and appendectomy childhood Surgical History Myringotomies Surgical History Right knee arthroscopy-Dr. Bridges 08/21 18 Goals Section No Information Health Concerns No Information MEDICAL EQUIPMENT No Information MENTAL STATUS No Information FUNCTIONAL STATUS No Information ASSESSMENTS No Information PLAN OF TREATMENT Medication Medication Name Sig Start Date Stop Date Levothyroxine Sodium 125 MCG 1 tablet Orally Once a day for 90 d ay(s) Xarelto 10 MG 1 tablet Orally Once a day for 90 days May, 2 020 Next Appt Details Provider Name:Frank Maurice, 2020-11-29 09 :00:00 AM, [address] [place] [address] , [place], [address], Provider Name:Frank Maurice, 2021-05-03 07 :30:00 AM, [address] [place] [address] , [place], [address], Insurance Providers Payer Name Payer Address Payer Phone Insured Name Patient Relati onship to Insured Coverage Start Date Coverage End Date OTHER1 ALEX [place] MEDICARE Part A and B [address] [facility] [phone] ALEX MONTAGUE self
[2021-01-25] MEDS ORDERED: LIDOCAINE 2% 100MG/5ML SDV (FOR ANES.) As Ordered ONE (11:11)
[2021-01-25] MEDS ORDERED: propofoL 200 MG/20 ML VIAL As Ordered ONE ×2 (11:17→13:00)
[2021-01-25] MEDS ORDERED: GLYCOPYRROLATE INJ 0.2 MG/ML 2 ML VIAL As Ordered ONE (13:20)
--- NOTE | 2021-01-25 13:36 | ROOR ---
Patient Name: Charlie Emery Procedure Date: 01/25/2021 1:06 PM Date of : 1955 Age: 65 Room: [facility] Gender: Male Note Status: Finalized Procedure: Colonoscopy Indications: Anal bleeding Providers: Florian Morton MD Referring MD: Frank Maurice MD Requesting Provider: Medicines: Monitored Anesthesia Care Complications: No immediate complications. Procedure: Pre-Anesthesia Assessment: - Prior to the procedure, a History and Physical was performed, and patient medications and allergies were reviewed. The patient is competent. The risks and benefits of the procedure and the sedation options and risks were discussed with the patient. All questions were answered and informed consent was obtained. Patient identification and proposed procedure were verified by the physician, the nurse and the anesthesiologist in the endoscopy suite. Mental Status Examination: alert and oriented. Airway Examination: normal oropharyngeal airway and neck mobility. Respiratory Examination: clear to auscultation. CV Examination: normal. Prophylactic Antibiotics: The patient does not require prophylactic antibiotics. Prior Anticoagulants: The patient has taken Xarelto (rivaroxaban), last dose was 3 days prior to procedure. ASA Grade Assessment: III - A patient with severe systemic disease. After reviewing the risks and benefits, the patient was deemed in satisfactory condition to undergo the procedure. The anesthesia plan was to use monitored anesthesia care (MAC). Immediately prior to administration of medications, the patient was re-assessed for adequacy to receive sedatives. The heart rate, respiratory rate, oxygen saturations, blood pressure, adequacy of pulmonary ventilation, and response to care were monitored throughout the procedure. The physical status of the patient was re-assessed after the procedure. The Colonoscope was introduced through the anus and advanced to the cecum, identified by appendiceal orifice and ileocecal valve. The colonoscopy was somewhat difficult due to a tortuous colon. Findings: Hemorrhoids were found on perianal exam. A few small-mouthed diverticula were found in the sigmoid colon and descending colon. There is no endoscopic evidence of bleeding, erythema, inflammation, mass, polyps or ulcerations in the entire colon. External and internal hemorrhoids were found during retroflexion. The hemorrhoids were moderate and Grade III (internal hemorrhoids that prolapse but require manual reduction). Impression: - Hemorrhoids found on perianal exam. - Diverticulosis in the sigmoid colon and in the descending colon. - External and internal hemorrhoids. - No specimens collected. Recommendation: - Discharge patient to home (ambulatory). - Resume Xarelto (rivaroxaban) at prior dose today. Refer to primary physician for further adjustment of therapy. Procedure Code(s): --- Professional --- 76981, Colonoscopy, flexible; diagnostic, including collection of specimen(s) by brushing or washing, when performed (separate procedure) Diagnosis Code(s): --- Professional --- K64.2, Third degree hemorrhoids K62.5, Hemorrhage of anus and rectum K57.30, Diverticulosis of large intestine without perforation or abscess without bleeding CPT copyright 2019 [employer]. All rights reserved. The codes documented in this report are preliminary and upon supervisor packing review may be revised to meet current compliance requirements. Florian Morton MD Florian Morton MD 01/25/2021 1:35:50 PM Electronically signed by Florian Morton MD Number of Addenda: 0 Note Initiated On: 01/25/2021 1:06 PM Estimated Blood Loss: Estimated blood loss: none.
[2021-01-25 14:05] VITALS: BP 111/64
== END 2021-01-25 14:30 | disposition home or self-care (01) ==
LOC: M OPP 10:38
PROVIDERS: ATTEND Surgery
DX: K62.5 Hemorrhage of anus and rectum (principal); K64.2 Third degree hemorrhoids; K57.30 Diverticulosis of large intestine without perforation or abscess without bleeding; E03.9 Hypothyroidism, unspecified; I82.402 Acute embolism and thrombosis of unspecified deep veins of left lower extremity; G47.30 Sleep apnea, unspecified; Z79.899 Other long term (current) drug therapy

== ENCOUNTER → 2021-09-07 | Outpatient (CLI) | payer MEDICARE | LOC: M PLAIMG 14:07 | PROVIDERS: ATTEND Orthopaedic Surgery | DX: M22.42 Chondromalacia patellae, left knee (principal); M25.462 Effusion, left knee; S83.242A Other tear of medial meniscus, current injury, left knee, initial encounter ==

== ENCOUNTER → 2022-01-11 | Outpatient (CLI) | payer MEDICARE, OTHER ==
[2022-01-11 17:21] LABS: BASO # 0.1 10^3/uL (0.0-0.2); EOS # 0.4 10^3/uL (0.0-0.5); LYMPH # 1.8 10^3/uL (1.5-5.0); LYMPH % 25.2 % (24.0-44.0); MEAN CORPUSCULAR HEMOGLOBIN 30.1 pg (27.0-33.0); MEAN CORPUSCULAR HGB CONC 32.6 g/dl (32.0-36.5); MEAN CORPUSCULAR VOLUME 92.2 fl (80.0-96.0); MONO # 0.9 10^3/uL (0.0-0.8); MONO % 12.7 % (2.0-8.0); NEUTROPHILS % 55.7 % (36.0-66.0); PLATELET COUNT, AUTOMATED 206 10^3/uL (150-450); RED BLOOD COUNT 4.99 10^6/uL (4.30-6.10); WHITE BLOOD COUNT 7.1 10^3/uL (4.0-10.0)
[2022-01-11 17:44] LABS: INR 1.03; PARTIAL THROMBOPLASTIN TIME 28.7 SECONDS (24.8-34.2); PROTHROMBIN TIME 13.8 SECONDS (12.5-14.5)
[2022-01-11 19:01] LABS: ALBUMIN 3.9 GM/DL (3.2-5.2); ALT/SGPT 26 U/L (12-78); BILIRUBIN,TOTAL 0.3 MG/DL (0.2-1.0); BLOOD UREA NITROGEN 22 MG/DL (7-18); CARBON DIOXIDE LEVEL 29 MEQ/L (21-32); CHLORIDE LEVEL 104 MEQ/L (98-107); CREATININE FOR GFR 1.11 MG/DL (0.70-1.30); FREE T4 0.94 NG/DL (0.76-1.46); GLOMERULAR FILTRATION RATE > 60.0 (>49); GLUCOSE, FASTING 110 MG/DL (70-100); NT-PRO BNP 19 PG/ML (<125); POTASSIUM SERUM 4.2 MEQ/L (3.5-5.1); SODIUM LEVEL 137 MEQ/L (136-145); TOTAL PROTEIN 7.5 GM/DL (6.4-8.2)
== END ==
LOC: M PLALAB 15:58
PROVIDERS: ATTEND Family Medicine
DX: E03.9 Hypothyroidism, unspecified (principal); Z86.711 Personal history of pulmonary embolism

== ENCOUNTER → 2022-01-14 | Outpatient (CLI) | payer MEDICARE | LOC: M LABSMTC 09:48 | PROVIDERS: ATTEND Orthopaedic Surgery | DX: M25.511 Pain in right shoulder (principal); Z01.812 Encounter for preprocedural laboratory examination ==

== ENCOUNTER → 2022-12-12 | Outpatient (CLI) | payer MEDICARE, OTHER ==
[2022-12-12 14:29] LABS: HEMATOCRIT 47.2 % (42.0-52.0); HEMOGLOBIN 15.9 g/dl (13.5-17.5); MEAN CORPUSCULAR HEMOGLOBIN 31.1 pg (27.0-33.0); MEAN CORPUSCULAR HGB CONC 33.7 g/dl (32.0-36.5); MEAN CORPUSCULAR VOLUME 92.2 fl (80.0-96.0); PLATELET COUNT, AUTOMATED 174 10^3/uL (150-450); RED BLOOD COUNT 5.12 10^6/uL (4.30-6.10)
[2022-12-12 14:39] LABS: HEMOGLOBIN A1c 4.8 % (4.0-6.0)
[2022-12-12 14:55] LABS: CREATININE, URINE 72.7 MG/DL
[2022-12-12 14:56] LABS: C REACTIVE PROTEIN QUANTITATIV < 0.40 MG/DL (<1.0); MALB URINE SIEMENS < 3.0 MG/L; MAU/CREAT RATIO 4.1 MCG/MG (0.0-30.0)
[2022-12-12 15:00] LABS: ALBUMIN 3.7 G/DL (3.2-5.2); ALKALINE PHOSPHATASE 59 U/L (46-116); ALT/SGPT 24 U/L (7.0-40); AST/SGOT 20 U/L (<34); BILIRUBIN,TOTAL 0.7 MG/DL (0.3-1.2); BLOOD UREA NITROGEN 21 MG/DL (9-23); CALCIUM LEVEL 9.2 MG/DL (8.3-10.6); CARBON DIOXIDE LEVEL 29 MMOL/L (20-31); CHLORIDE LEVEL 105 MMOL/L (98-107); CHOLESTEROL LEVEL 180 MG/DL (<200); CHOLESTEROL RISK RATIO 2.67 (<5); CREATININE FOR GFR 1.12 MG/DL (0.70-1.30); FREE T4 1.07 NG/DL (0.89-1.76); GLOMERULAR FILTRATION RATE > 60.0 (>49); GLUCOSE, FASTING 100 MG/DL (74-106); HDL CHOLESTEROL 67.4 MG/DL (>40); LDL CHOLESTEROL 99.8 MG/DL (<100); NON-HDL-C 112.6 MG/DL; POTASSIUM SERUM 4.5 MMOL/L (3.5-5.1); SODIUM LEVEL 139 MMOL/L (136-145); TESTOSTERONE 373 NG/DL (241-827); THYROID STIMULATING HORMONE 1.684 uIU/ML (0.55-4.78); TOTAL 25(OH) VITAMIN D 42.9 NG/ML (20.0-100.0); TOTAL PROTEIN 6.7 G/DL (5.7-8.2); TRIGLYCERIDES LEVEL 64 MG/DL (<150); VITAMIN B12 LEVEL 675 PG/ML (211-911)
[2022-12-14 14:08] LABS: INSULIN LEVEL 2.9 uIU/mL (2.6-24.9); LIPOPROTEIN (a) 73.7 nmol/L (<75.0)
== END ==
LOC: M PLALAB 10:05
PROVIDERS: ATTEND Internal Medicine Hematology
DX: R73.01 Impaired fasting glucose (principal); E03.9 Hypothyroidism, unspecified; Z79.899 Other long term (current) drug therapy

== ENCOUNTER → 2023-05-16 | Outpatient (CLI) | payer MEDICARE, OTHER ==
[2023-05-16 11:59] LABS: HEMATOCRIT 48.2 % (42.0-52.0); HEMOGLOBIN 16.5 g/dl (13.5-17.5); MEAN CORPUSCULAR HEMOGLOBIN 30.4 pg (27.0-33.0); MEAN CORPUSCULAR HGB CONC 34.2 g/dl (32.0-36.5); MEAN CORPUSCULAR VOLUME 88.9 fl (80.0-96.0); PLATELET COUNT, AUTOMATED 198 10^3/uL (150-450); RED BLOOD COUNT 5.42 10^6/uL (4.30-6.10); WHITE BLOOD COUNT 7.4 10^3/uL (4.0-10.0)
[2023-05-16 12:24] LABS: HEMOGLOBIN A1c 5.5 % (4.0-6.0)
[2023-05-16 12:32] LABS: CREATININE, URINE 109.3 MG/DL
[2023-05-16 12:33] LABS: MAU/CREAT RATIO 2.7 MCG/MG (0.0-30.0)
[2023-05-16 12:36] LABS: C REACTIVE PROTEIN QUANTITATIV < 0.40 MG/DL (<1.0)
[2023-05-16 12:38] LABS: ALBUMIN 3.7 G/DL (3.2-5.2); ALKALINE PHOSPHATASE 56 U/L (46-116); ALT/SGPT 31 U/L (7.0-40); AST/SGOT 33 U/L (<34); BILIRUBIN,TOTAL 1.1 MG/DL (0.3-1.2); BLOOD UREA NITROGEN 19 MG/DL (9-23); CALCIUM LEVEL 8.7 MG/DL (8.3-10.6); CARBON DIOXIDE LEVEL 29 MMOL/L (20-31); CHLORIDE LEVEL 106 MMOL/L (98-107); CHOLESTEROL LEVEL 188 MG/DL (<200); CHOLESTEROL RISK RATIO 3.38 (<5); GLOMERULAR FILTRATION RATE > 60.0 (>49); GLUCOSE, FASTING 86 MG/DL (74-106); HDL CHOLESTEROL 55.5 MG/DL (>40); LDL CHOLESTEROL 112.3 MG/DL (<100); NON-HDL-C 132.5 MG/DL; PSA SCREENING 0.66 NG/ML (< 4.00); SODIUM LEVEL 137 MMOL/L (136-145); TOTAL PROTEIN 6.6 G/DL (5.7-8.2); TRIGLYCERIDES LEVEL 101 MG/DL (<150)
[2023-05-16 12:39] LABS: TOTAL 25(OH) VITAMIN D 37.9 NG/ML (20.0-100.0)
[2023-05-16 12:40] LABS: THYROID STIMULATING HORMONE 3.681 uIU/ML (0.55-4.78); VITAMIN B12 LEVEL 631 PG/ML (211-911)
== END ==
LOC: M PLALAB 07:04
PROVIDERS: ATTEND Internal Medicine Hematology
DX: E78.00 Pure hypercholesterolemia, unspecified (principal); Z12.5 Encounter for screening for malignant neoplasm of prostate; Z79.890 Hormone replacement therapy; Z79.899 Other long term (current) drug therapy
CPT/HCPCS: 36415; 80053; 80061; 82043; 82306; 82607; 83036; 84443; 85027; 86140; G0103

== ENCOUNTER → 2024-05-29 | Outpatient (CLI) | payer MEDICARE, OTHER ==
[2024-05-29 13:39] LABS: BASO # 0.1 10^3/uL (0.0-0.2); BASO % 1.2 % (0.0-1.0); EOS # 0.2 10^3/uL (0.0-0.5); EOS % 3.1 % (0.0-3.0); HEMATOCRIT 53.1 % (42.0-52.0); HEMOGLOBIN 17.6 g/dl (13.5-17.5); LYMPH % 30.1 % (24.0-44.0); MEAN CORPUSCULAR HEMOGLOBIN 29.9 pg (27.0-33.0); MEAN CORPUSCULAR HGB CONC 33.1 g/dl (32.0-36.5); MEAN CORPUSCULAR VOLUME 90.2 fl (80.0-96.0); MONO # 0.7 10^3/uL (0.0-0.8); MONO % 11.1 % (2.0-8.0); NEUTROPHILS # 3.5 10^3/uL (1.5-8.5); NEUTROPHILS % 54.2 % (36.0-66.0); PLATELET COUNT, AUTOMATED 206 10^3/uL (150-450); RED BLOOD COUNT 5.89 10^6/uL (4.30-6.10); WHITE BLOOD COUNT 6.5 10^3/uL (4.0-10.0)
[2024-05-29 14:14] LABS: ALKALINE PHOSPHATASE 61 U/L (40-129); ALT/SGPT 29 U/L (7.0-40); AST/SGOT 27 U/L (<34); BILIRUBIN,TOTAL 0.8 MG/DL (0.3-1.2); BLOOD UREA NITROGEN 16 MG/DL (9-23); CALCIUM LEVEL 9.5 MG/DL (8.3-10.6); CARBON DIOXIDE LEVEL 30 MMOL/L (20-31); CHLORIDE LEVEL 103 MMOL/L (98-107); CHOLESTEROL LEVEL 232 MG/DL (<200); CHOLESTEROL RISK RATIO 4.08 (<5); CREATININE FOR GFR 1.25 MG/DL (0.70-1.30); GLOMERULAR FILTRATION RATE > 60.0 (>42); GLUCOSE, FASTING 104 MG/DL (74-106); HDL CHOLESTEROL 56.8 MG/DL (>40); NON-HDL-C 175.2 MG/DL; POTASSIUM SERUM 4.7 MMOL/L (3.5-5.1); SODIUM LEVEL 140 MMOL/L (136-145); TOTAL PROTEIN 7.4 G/DL (5.7-8.2); TRIGLYCERIDES LEVEL 101 MG/DL (<150)
[2024-05-29 14:15] LABS: THYROID STIMULATING HORMONE 6.879 uIU/ML (0.55-4.78)
[2024-05-29 14:17] LABS: HEMOGLOBIN A1c 5.6 % (4.0-6.0)
== END ==
LOC: M PLALAB 09:16
PROVIDERS: ATTEND Family Medicine
DX: E78.00 Pure hypercholesterolemia, unspecified (principal); Z86.711 Personal history of pulmonary embolism; E03.9 Hypothyroidism, unspecified; Z79.899 Other long term (current) drug therapy

== ENCOUNTER → 2024-07-20 | Outpatient (CLI) | payer MEDICARE | LOC: M PLALAB 09:12 | PROVIDERS: ATTEND Family Medicine | DX: E29.1 Testicular hypofunction (principal) ==

== ENCOUNTER → 2024-12-30 | Outpatient (CLI) | payer MEDICARE ==
[~2024-12-30] MED LIST changes: -IBUP-1022 PO; +IBUP600T42 PO
[2024-12-30 11:16] LABS: PLATELET COUNT, AUTOMATED 187 10^3/uL (150-450)
[2024-12-30 11:44] LABS: CREATININE, URINE 72.3 MG/DL
[2024-12-30 11:45] LABS: MALB URINE SIEMENS < 3.0 MG/L; TOTAL 25(OH) VITAMIN D 43.8 NG/ML (20.0-100.0)
[2024-12-30 11:47] LABS: CHOLESTEROL LEVEL 207.0 MG/DL (<200); CHOLESTEROL RISK RATIO 2.57 (<5); FREE T4 1.2 NG/DL (0.89-1.76); LDL CHOLESTEROL 115.9 MG/DL (<100); NON-HDL-C 126.5 MG/DL; TRIGLYCERIDES LEVEL 53.0 MG/DL (<150)
== END ==
LOC: M PLALAB 09:00
PROVIDERS: ATTEND Family Medicine
DX: E03.9 Hypothyroidism, unspecified (principal); E55.9 Vitamin D deficiency, unspecified; D58.2 Other hemoglobinopathies; E78.00 Pure hypercholesterolemia, unspecified; R03.0 Elevated blood-pressure reading, without diagnosis of hypertension